=== PATIENT | male | born 1980 ===

== ENCOUNTER 2024-10-19 03:46 | Emergency (ER) | payer SELFPAY ==
[2024-10-19] VITALS (7 sets, daily range): BP systolic 144–188; BP diastolic 88–118; PULSE 78–107; RESP 16–19; TEMP 36.6–38.9; O2SAT 97–98; BMI 31.9
--- NOTE | ~2024-10-19 | CT_ITS ---
EXAMINATION: CT head/brain wo IV con CLINICAL INFORMATION: VÁSQUEZ blurred vision, fall COMPARISON: None. TECHNIQUE: Contiguous axial imaging was performed from the skull base to vertex without intravenous contrast. This CT examination was performed using dose optimization techniques as appropriate, variously including the following: * Automated exposure control * Adjustment of mA and/or kV according to patient size (this includes techniques or standardized protocols for targeted exams where dose is matched to indication/reason for exam; i.e. extremities or head) * Use of iterative reconstruction technique DLP: 676 mGy-cm. FINDINGS: There is no evidence of acute intracranial hemorrhage or territorial infarction. Baig to white matter differentiation is well preserved. No abnormal mass effect or midline shift is seen. No extra-axial fluid collections are identified. No hydrocephalus. No significant volume loss. There is no abnormal attenuation within the brain parenchyma. The cerebellar tonsils are well positioned. No acute osseous or soft tissue abnormality. Visualized portions of the orbits are unremarkable. The mastoid air cells and visualized portions of the paranasal sinuses are well aerated. CT/CT head/brain wo IV con IMPRESSION: No acute intracranial pathology. Electronically signed by: Radha Schneider DO 10/19/2024 12:38 PM [facility]
--- NOTE | ~2024-10-19 | XR_ITS ---
EXAMINATION: XR CHEST CLINICAL INFORMATION: fever COMPARISON: None TECHNIQUE: Frontal view of the chest was obtained. FINDINGS: The cardiomediastinal silhouette is within normal limits. The lungs are well expanded. There is a hazy opacity in the peripheral right lower lung, concerning for infiltrate. There is no edema, or effusion. No pneumothorax. No acute osseous abnormality. XR/XR chest 1V IMPRESSION: Hazy opacity in the peripheral right lower lung, concerning for infiltrate, from infectious/inflammatory process. Recommendation is for a follow-up chest series to be obtained following treatment and/or resolution of symptoms to assure resolution of this appearance. Electronically signed by: Sergio Knutson MD 10/19/2024 12:02 PM [facility]
--- NOTE | 2024-10-19 07:44 | ED_ITS ---
HPI - General Adult General Chief complaint: Fall Stated complaint: PSYCHOLOGICAL DISTRESS/HYPERTENSIVE/FALL Time Seen by Provider: 10/19/24 06:32 Source: patient, EMS, RN notes reviewed and old records reviewed Mode of arrival: EMS History of Present Illness ED Provider: Nara Selby PA-C HPI narrative: 43-year-old male no significant past medical history presenting to the ED via EMS from [facility] in [place] complaining of headache, blurry vision, and ?syncopal episode with fall CATEGORY DIRECTOR. Patient states he was eating/ordered food and experienced headache, tried to walk it off however lost control and per EMS fell in parking lot with unknown LOC or head strike. Patient admits to intermittent frequent headaches with blurry vision. Denies headache or blurry vision at present. Denies anticoagulation use. Patient also reported people are following him and he reported things to authorities but nothing is being done. Denies SI/HI. Denies auditory or visual hallucinations at present. Denies illicit substance or EtOH use. Related Data Previous Rx's ?Medication ?Instructions ?Recorded amoxicillin 500 mg capsule 1,000 mg (2 x 500 mg) PO TID 7 10/19/24 days #42 caps azithromycin 250 mg tablet 250 mg PO DAILY 4 days #4 tabs 10/19/24 Allergies Allergy/AdvReac Type Severity Reaction Status Date / Time No Known Allergies Allergy Verified 10/19/24 04:06 Review of Systems 2 Review of Systems: Yes all other systems are reviewed and are negative Constitutional: Constitutional: Reports as per HPI Neurologic: Denies Abnormal speech present [facility] Past Medical History Attestation statement: The following information was validated with the patient. Source: old records reviewed Social History Social History Smoked in Last 30 Days: No Use of substances other than those prescribed or required for medical reasons: No Advance Directives: No Advance Directives Information Provided: No Do you have a plan to hurt others: No Plan Physical Exam ED Vital Signs: Vital Signs - 24 hr 10/19/24 03:58 10/19/24 04:18 10/19/24 04:18 Temperature 101.5 F H 102.1 F H 102.1 F H Pulse Rate 93 93 93 Respiratory Rate 16 16 16 Blood Pressure 144/88 H 144/88 H 144/88 H Pulse Oximetry 97 97 97 Oxygen Delivery Method Room Air Room Air 10/19/24 06:31 10/19/24 08:36 10/19/24 08:37 Temperature 100.9 F H Pulse Rate 97 78 84 Respiratory Rate 19 Blood Pressure 154/93 H 166/91 H 159/93 H Pulse Oximetry 97 Oxygen Delivery Method Room Air 10/19/24 08:37 10/19/24 08:38 Temperature Pulse Rate 96 84 Respiratory Rate 17 Blood Pressure 188/118 H 159/93 H Pulse Oximetry 98 Oxygen Delivery Method Room Air BMI result Body Mass Index 31.9 Const General: cooperative, healthy appearing, no acute distress, alert and awake Orientation/consciousness: patient oriented x3 Limitations: no limitations HENMT Head: Yes normal to inspection, Yes atraumatic, No Osorio's sign and No raccoon eyes Ears: hearing grossly normal bilaterally General nose exam: Normal external nose present Face and sinus: Yes normal facial exam Mouth: Normal oral and palatal mucosa present and no drooling Throat: Yes posterior oropharynx normal, Yes tonsils normal and Yes uvula midline Eyes General: appearance normal, both eyes and all related structures Pupils: Equal, round and reactive pupils present EOM: EOMs intact bilaterally Neck Neck: Yes normal visual inspection and Yes no meningeal signs Resp Effort & Inspection: normal respiratory effort and no respiratory distress Auscultation: clear to auscultation bilaterally and no wheezes Cardio Rate: regular rate Heart sounds: S1 normal heart sound present and S2 normal heart sound present GI Inspection: Yes normal to inspection Palpation (GI): Soft to palpation, nontender, no guarding and not rigid Back/Spine/Pelvis Other: No midline cervical/thoracic/lumbar spinous tenderness/step-off or deformity Skin Rashes: no rashes Wounds: no wounds Neuro General: patient oriented x3, tone normal, moves all extremities, no meningeal signs, no focal motor deficits and CN's II-XI intact bilaterally Cranial nerves: Yes CN's II-XII intact bilaterally, Yes Equal, round and reactive pupils present and Yes Bilaterally intact EOM present Cognition (Neuro): normal cognition Speech: No Abnormal speech present Motor exam (neuro): 5/5 motor strength present throughout Extrem General: Yes normal to inspection Psych Thought content: suicidality and no homicidality Course Course Course Narrative: -labs reassuring. Initial troponin 12.1 > will obtain repeat -viral studies negative XR chest 1V IMPRESSION: Hazy opacity in the peripheral right lower lung, concerning for infiltrate, from infectious/inflammatory process. Recommendation is for a follow-up chest series to be obtained following treatment and/or resolution of symptoms to assure resolution of this appearance. > PO Amoxicillin & Azithro given 1248--CT head/brain wo IV con IMPRESSION: No acute intracranial pathology. -1429--repeat troponin without rise, mi unlikely Results discussed with patient including worrisome signs and symptoms and strict return precautions, and when to return to the emergency department. They verbalized understanding and feel safe for discharge at this time. Medications Administered Discontinued Medications Generic Name Dose Route Start Last Admin Trade Name Fre[place] PRN Reason Stop Dose Admin Acetaminophen 650 mg 10/19/24 07:07 10/19/24 09:01 Acetaminophen 325 Mg Tablet PO 10/19/24 07:08 650 mg ONCE ONE Administration Amoxicillin 1,000 mg 10/19/24 12:17 10/19/24 12:47 Amoxicillin 500 Mg Capsule PO 10/19/24 12:18 1,000 mg ONCE ONE Administration Azithromycin 500 mg 10/19/24 12:17 10/19/24 12:47 Azithromycin 500 Mg Tablet PO 10/19/24 12:18 500 mg ONCE ONE Administration Medical Decision Making Medical Decision Making MDM Narrative: 43-year-old male no significant past medical history presenting to the ED via EMS from [facility] complaining of headache, blurry vision, and ?syncopal episode with fall CATEGORY DIRECTOR. Patient states he was eating/ordered food and experienced headache, tried to walk it off however lost control and per EMS fell in parking lot with unknown LOC or head strike. Patient also reported people are following him and he reported things to authorities but nothing is being done. On exam febrile 101.5, NAD, nontoxic appearing, A&O x3, denies complaints at present. Will not be descriptive/forthcoming with hallucination complaints with this sql report writer, states it does not matter & is not important right now. No midline spinous tenderness or focal neuro deficits. Concern for complicated migraine headache vs syncopal episode vs ?seizure vs ICH. Concern for psychiatric illness. Lower suspicion for encephalitis/meningitis at this time. Rule out viral illness Plan: EKG, labs, UA, orthostatics, head CT, viral studies, re-evaluate Please refer to course for remaining clinical decision making, interpretation of labs/imaging results, and discussions with consultants and/or family members. Differential Diagnosis Differential Diagnoses: The differential diagnosis associated with the presentation includes As above Admission/Observation Consideration of admission/observation: Escalation of care including admission/observation considered Consult Healthcare Provider Management of the patient was discussed with: Behavioral Health Provider Lab Data MDM Lab Attestation statement: I reviewed the patient's lab results. 10/19/24 07:50 10/19/24 07:50 Labs: Lab Results 10/19/24 10/19/24 10/19/24 Range/Units 07:50 08:47 13:38 WBC 7.0 (4.8-10.8) X10*3/uL RBC 4.46 L (4.60-5.80) X10*6/uL Hgb 13.4 L (14.0-18.0) g/dl Hct 37.5 L (42.0-52.0) % MCV 84.1 (80.0-98.0) fL MCH 30.0 (27.0-33.0) pg MCHC 35.7 (31.0-36.0) g/dl RDW 12.4 (11.0-16.0) % Plt Count 188 (160-400) X10*3/uL MPV 11.0 (9.4-12.4) fL Immature Gran % (Auto) 0.3 (0.0-0.4) % Neut % (Auto) 77.8 H (45-73) % Lymph % (Auto) 15.3 L (20-40) % [place] % (Auto) 6.1 (2-11) % Eos % (Auto) 0.1 (0-4) % Baso % (Auto) 0.4 (0-2) % Lymph # (Auto) 1.1 L (1.2-4.9) X10*3/uL [place] # (Auto) 0.4 (0.1-1.2) X10*3/uL Eos # (Auto) 0.0 (0.0-0.4) X10*3/uL Baso # (Auto) 0.0 (0.0-0.2) X10*3/uL Abs Immat Gran (auto) 0.02 (0.00-0.03) X10*3/uL Absolute Neuts (auto) 5.4 (2.0-8.3) x10*3/uL Absolute Nucleated RBC 0.000 (0.0-0.012) X10*3/uL Nucleated RBC % (auto) 0.0 (0.0-0.2) /100WBC Sodium 144 (135-145) mmol/L Potassium 3.4 (3.3-5.1) mmol/L Chloride 110 H (96-108) mmol/L Carbon Dioxide 23 (22-29) mmol/L Anion Gap 14 (12-20) BUN 16 (9-16) mg/dL Creatinine 1.08 (0.5-1.4) mg/dL Estim Creat Clear Calc 93.4 Estimated GFR > 60 Random Glucose 134 H (60-115) mg/dL Lactic Acid 1.3 (0.5-2.0) mmol/L Calcium 9.2 (8.4-10.2) mg/dL Magnesium 2.1 (1.6-2.6) mg/dL Total Bilirubin 0.3 (0.0-1.0) mg/dL Direct Bilirubin 0.1 (0.0-0.5) mg/dL AST 29 (5-37) U/L ALT 20 (0-40) U/L Alkaline Phosphatase 66 (39-117) U/L Troponin I High Sens 12.1 5.4 D (<3.5-35.0) ng/L Total Protein 6.7 (6.5-8.0) g/dL Albumin 4.1 (3.5-5.0) g/dL Ethyl Alcohol < 10 mg/dL Influenza Type A (PCR) NEGATIVE (Negative) Influenza Type B (PCR) NEGATIVE (Negative) RSV RNA Qual (PCR) NEGATIVE (Negative) SARS-CoV-2 RNA (RT-PCR) NEGATIVE (Negative) Independent Interpretation I performed an independent interpretation of an: EKG, Plain X-Ray and CT Scan Radiology Impression Discussion of test interpretation with radiology: I have reviewed the radiologist's reading. Independent Historian Clinical information obtained from an independent historian. History obtained from or confirmed by: EMS External Record Review External record reviewed: Inpatient record, Office record, Outpatient record, Prior outpatient labs, Prior outpatient radiology, Primary care record and Outside ED record Tests considered The following testing was considered but not selected: As above Prescription Management I considered prescription management with: Pain Medication Chronic Conditions Patient?s care impacted by: Other Social Determinants Patient?s care significantly limited by Social Determinants of Health including: Alcoholism and drug addiction in family and Other Social Determinant of Health Discharge Plan Discharge Clinical Impression: Pneumonia Patient Disposition: Still a Patient Instructions: Community Acquired Pneumonia (DC) Prescriptions: New amoxicillin 500 mg capsule 1,000 mg PO TID 7 Days Qty: 42 0RF azithromycin 250 mg tablet 250 mg PO DAILY 4 Days Qty: 4 0RF Rx Instructions: start on day 2 of therapy Print Language: Divehi
--- NOTE | 2024-10-19 07:53 | ECG_ITS ---
Test Reason : syncope Blood Pressure : / mmHG Vent. Rate : 090 BPM Atrial Rate : 090 BPM P-R Int : 150 ms QRS Dur : 090 ms QT Int : 366 ms P-R-T Axes : 053 059 042 degrees QTc Int : 447 ms Normal sinus rhythm Normal ECG No previous ECGs available Referred By: Nara Selby Electronically Signed By:ZEV ALBERT MD
[2024-10-19 07:54] LABS: MANUAL DIFF FLAG NO
[2024-10-19 07:56] LABS: Basophils Percent Auto 0.4 % (0-2); Eosinophils Percent Auto 0.1 % (0-4); Hematocrit 37.5 % (42.0-52.0); Hemoglobin 13.4 g/dl (14.0-18.0); Imm Gran Abs Auto 0.02 X10*3/uL (0.00-0.03); Imm Gran Pct Auto 0.3 % (0.0-0.4); Lymphocytes Absolute Auto 1.1 X10*3/uL (1.2-4.9); Lymphocytes Percent Auto 15.3 % (20-40); Mean Corpuscular HGB Conc 35.7 g/dl (31.0-36.0); Mean Corpuscular Volume 84.1 fL (80.0-98.0); Monocytes Absolute Auto 0.4 X10*3/uL (0.1-1.2); Monocytes Percent Auto 6.1 % (2-11); Neutrophils Absolute Auto 5.4 x10*3/uL (2.0-8.3); Neutrophils Percent Auto 77.8 % (45-73); Platelet Count 188 X10*3/uL (160-400); Red Blood Count 4.46 X10*6/uL (4.60-5.80); Red Cell Distribution Width 12.4 % (11.0-16.0)
[2024-10-19 08:27] LABS: Albumin Level 4.1 g/dL (3.5-5.0); Anion Gap 14 (12-20); Aspartate Amino Transferase 29 U/L (5-37); Bilirubin Direct 0.1 mg/dL (0.0-0.5); Bilirubin Total 0.3 mg/dL (0.0-1.0); Blood Urea Nitrogen 16 mg/dL (9-16); Calcium 9.2 mg/dL (8.4-10.2); Carbon Dioxide 23 mmol/L (22-29); Chloride 110 mmol/L (96-108); Creatinine Clr Calc Pharmacy 93.4; Estimated Glomerular Filt Rate > 60; Glucose Random 134 mg/dL (60-115); Magnesium 2.1 mg/dL (1.6-2.6); Potassium 3.4 mmol/L (3.3-5.1); Sodium 144 mmol/L (135-145); Total Protein 6.7 g/dL (6.5-8.0); Troponin-I High Sensitivity 12.1 ng/L (<3.5-35.0)
[2024-10-19 08:38] LABS: Influenza A PCR NEGATIVE (Negative); Influenza B PCR NEGATIVE (Negative); Resp Syncy Virus RNA Qual PCR NEGATIVE (Negative); SARS COV2 PCR INHOUSE NEGATIVE (Negative)
[2024-10-19 08:52] LABS: Alanine Aminotransferase 20 U/L (0-40); Alkaline Phosphatase 66 U/L (39-117)
[2024-10-19] MEDS: Acetaminophen 325 MG TABLET 650 MG PO (09:01)
[2024-10-19 09:07] LABS: Ethanol < 10 mg/dL; Lactic Acid 1.3 mmol/L (0.5-2.0)
--- NOTE | 2024-10-19 09:43 | MHC.CARE ---
Pt does not meet IPLOC or present as an imminent risk. Pt denies SI, HI, and A/V/H. Pt does not present as paranoid or delusional or can safely D/C home as there are no safety concerns. Provider in agreement.
--- NOTE | 2024-10-19 12:39 | MHC.EDTECH ---
This tech approached patient for collection of repeat trop. Patient politely declined to have any blood drawn.
[2024-10-19] MEDS: Azithromycin 500 MG TABLET PO (12:47)
[2024-10-19] MEDS: Amoxicillin 500 MG CAPSULE 1000 MG PO (12:47)
[2024-10-19 14:06] LABS: Troponin-I High Sensitivity 5.4 ng/L (<3.5-35.0)
== END 2024-10-19 14:55 | disposition home or self-care (01) ==
PROVIDERS: Physician Assistant; Emergency Provider Student in an Organized Health Care Education/Training Program
DX: J18.9 Pneumonia, unspecified organism (principal); R55 Syncope and collapse; H53.8 Other visual disturbances; R51.9 Headache, unspecified
CPT/HCPCS: 0241U; 36415; 70450; 71045; 80048; 80076; 80307; 83605; 83735; 84484; 85025; 93005; 99284; 99285

== ENCOUNTER → 2024-10-19 07:53 | Outpatient (BNV) | payer SELFPAY | PROVIDERS: Emergency Provider Student in an Organized Health Care Education/Training Program; Visit Provider Internal Medicine Cardiovascular Disease | DX: R55 Syncope and collapse (principal) | CPT/HCPCS: 93010 ==